=== PATIENT | male | born 1950 | race Caucasian/White ===

== ENCOUNTER 2017-10-17 06:30 | Inpatient (IN) ==
[2017-10-17] MEDS ORDERED: POTASSIUM CHLORIDE RIDER 10 MEQ in PREMIX 1 EACH IV PRN (08:51)
[2017-10-17] MEDS ORDERED: DIAZEPAM 5 MG TABLET PO ONE (08:51)
[2017-10-17] MEDS ORDERED: ASPIRIN 325 MG TABLET PO ONE (08:51)
[2017-10-17] MEDS ORDERED: diphenhydrAMINE CAP 25 MG CAPSULE PO ONE (08:51)
[2017-10-17] MEDS ORDERED: MAGNESIUM SULF RIDER 2 GM in PREMIX 1 EACH IV PRN (08:51)
[2017-10-17] MEDS ORDERED: diphenhydrAMINE CAP 25 MG CAPSULE ONE (09:42)
[2017-10-17] MEDS ORDERED: DIAZEPAM 5 MG TABLET ONE (09:42)
[2017-10-17] MEDS: SODIUM CHLORIDE 0.9% 1,000 ML IV SCH (09:51)
[2017-10-17] MEDS ORDERED: NITROGLYCERIN DRIP 50 MG/250 ML BOTTLE IV ONE (11:14)
[2017-10-17] MEDS ORDERED: HEPARIN/NACL 0.9% 2 UNITS/ML 2,000 ML IV ONE (11:14)
[2017-10-17] MEDS ORDERED: VERAPAMIL 5 MG/2 ML VIAL ONE (11:14)
[2017-10-17] MEDS ORDERED: LIDOCAINE 1% 20 ML VIAL ONE (11:14)
[2017-10-17] MEDS ORDERED: MIDAZOLAM 2 MG/2 ML VIAL ONE (11:43)
[2017-10-17] MEDS ORDERED: HYDROmorphone 2 MG/1 ML VIAL ONE (11:43)
[2017-10-17] MEDS ORDERED: ENOXAPARIN 30 MG/0.3 ML SYRINGE ONE (11:57)
[2017-10-17] MEDS ORDERED: ADENOSINE 6 MG/2 ML VIAL ONE (12:17)
[2017-10-17] MEDS ORDERED: HEPARIN DRIP 25,000 UNITS/500 ML PREMIX IV ONE (14:01)
[2017-10-17] MEDS ORDERED: HEPARIN 5,000 UNIT/1 ML VIAL ONE (14:10)
[2017-10-17] MEDS ORDERED: HEPARIN 5,000 UNIT/1 ML VIAL IV ONE (14:14)
[2017-10-17] MEDS ORDERED: HEPARIN DRIP 25,000 UNITS/500 ML PREMIX IV SCH (14:30)
[2017-10-17 14:36] LABS: Basophils # 0.1 10*3/uL (0.0-0.2); Basophils % 0.9 % (0.0-0.8); Eosinophils # 0.2 10*3/uL (0.0-0.87); Eosinophils % 3.9 % (0.00-10.9); Hematocrit 42.8 VOL% (42.0-52.0); Hemoglobin 14.8 GM/DL (14.0-18.0); Immature Granulocytes % 0.5 %; Immature Granulocytes Absolute 0.03 #; Lymphocytes % 34.1 % (21.2-54.2); Mean Corpuscular HGB Conc 34.6 GM/DL (32-36); Mean Corpuscular Hemoglobin 32 PG (27-34); Mean Corpuscular Volume 92.4 FL (87-102); Mean Platelet Volume 10.7 FL (9.6-12.0); Monocytes # 0.6 10*3/uL (0.11-0.8); Monocytes % 9.4 % (1.7-12.7); Neutrophils % 51.2 % (38.7-73.9); Platelet Count 193 T/CUMM (130-400); Red Blood Count 4.63 MC/CUMM (3.8-5.5); Red Cell Distribution Width 12.8 % (9.3-17.3); White Blood Count 5.8 T/CUMM (4-12)
[2017-10-17] MEDS ORDERED: niCARdipine INJ 25 MG in SODIUM CHLORIDE 0.9% 240 ML IV PRN (14:47)
[2017-10-17] MEDS ORDERED: LABETALOL 20 MG/4 ML SYRINGE IV PRN (14:47)
[2017-10-17] MEDS ORDERED: ALTEPLASE 9 MG in PREMIX 1 EACH IV ONE (15:04)
[2017-10-17] MEDS ORDERED: ALTEPLASE 81 MG in PREMIX 1 EACH IV ONE (15:20)
[2017-10-17] MEDS ORDERED: FUROSEMIDE 20 MG/2 ML VIAL IV ONE (17:48)
[2017-10-17] MEDS ORDERED: ONDANSETRON 4 MG/2 ML VIAL ONE (18:53)
[2017-10-17] MEDS ORDERED: ONDANSETRON 4 MG/2 ML VIAL IV PRN (18:56)
[2017-10-17] MEDS ORDERED: ACETAMINOPHEN 325 MG TABLET PO ONE (22:00)
[2017-10-18] MEDS: SODIUM CHLORIDE 0.9% 1,000 ML IV SCH (03:56)
[2017-10-18 07:51] LABS: Basophils # 0.1 10*3/uL (0.0-0.2); Basophils % 0.7 % (0.0-0.8); Eosinophils # 0.2 10*3/uL (0.0-0.87); Hematocrit 42.3 VOL% (42.0-52.0); Hemoglobin 14.6 GM/DL (14.0-18.0); Immature Granulocytes % 0.4 %; Immature Granulocytes Absolute 0.03 #; Lymphocytes # 1.4 10*3/uL (1.4-4.0); Mean Corpuscular HGB Conc 34.5 GM/DL (32-36); Mean Corpuscular Hemoglobin 32 PG (27-34); Mean Corpuscular Volume 92.6 FL (87-102); Mean Platelet Volume 10.8 FL (9.6-12.0); Monocytes # 0.7 10*3/uL (0.11-0.8); Monocytes % 9.3 % (1.7-12.7); Neutrophils # 5.3 10*3/uL (1.4-7.4); Neutrophils % 69.6 % (38.7-73.9); Platelet Count 193 T/CUMM (130-400); Red Blood Count 4.57 MC/CUMM (3.8-5.5); Red Cell Distribution Width 12.7 % (9.3-17.3); White Blood Count 7.6 T/CUMM (4-12)
[2017-10-18 08:21] LABS: Calcium 8.8 MG/DL (8.5-10.1); Magnesium 2.2 MG/DL (1.8-2.4); Osmolality,Calculated 278.5 MOS/KG (273-304)
[2017-10-18] MEDS ORDERED: ALLOPURINOL 300 MG TABLET PO SCH (09:00)
[2017-10-18] MEDS ORDERED: RAMIPRIL 5 MG CAPSULE PO SCH (09:00)
[2017-10-18] MEDS ORDERED: amLODIPine 10 MG TABLET PO SCH (09:00)
[2017-10-18] MEDS ORDERED: ROSUVASTATIN 10 MG TABLET PO SCH (09:00)
[2017-10-18] MEDS: MELOXICAM 7.5 MG TABLET PO SCH (09:03)
[2017-10-18] MEDS: ISOSORBIDE MONONITRATE 30 MG TABLET PO SCH (09:03)
[2017-10-18] MEDS: hydroCHLOROthiazide 12.5 MG CAPSULE PO SCH (09:03)
[2017-10-18] MEDS: TAMSULOSIN 0.4 MG CAPSULE PO SCH (09:03)
[2017-10-18] MEDS: ESCITALOPRAM 10 MG TABLET PO SCH (09:03)
[2017-10-18] MEDS: PANTOPRAZOLE 40 MG TABLET PO SCH (09:03)
[2017-10-18] MEDS: CHOLECALCIFEROL 1,000 UNIT TABLET PO SCH (09:04)
[2017-10-18] MEDS: VITAMIN E 400 UNIT CAPSULE PO SCH (09:04)
[2017-10-18 15:02] LABS: Basophils % 0.5 % (0.0-0.8); Eosinophils # 0.1 10*3/uL (0.0-0.87); Eosinophils % 1.7 % (0.00-10.9); Hematocrit 40.7 VOL% (42.0-52.0); Hemoglobin 14.1 GM/DL (14.0-18.0); Immature Granulocytes % 0.4 %; Immature Granulocytes Absolute 0.03 #; Lymphocytes # 1.7 10*3/uL (1.4-4.0); Lymphocytes % 22.1 % (21.2-54.2); Mean Corpuscular HGB Conc 34.6 GM/DL (32-36); Mean Corpuscular Hemoglobin 32 PG (27-34); Mean Corpuscular Volume 92.3 FL (87-102); Mean Platelet Volume 10.5 FL (9.6-12.0); Monocytes # 0.8 10*3/uL (0.11-0.8); Monocytes % 10.6 % (1.7-12.7); Neutrophils # 4.9 10*3/uL (1.4-7.4); Neutrophils % 64.7 % (38.7-73.9); Platelet Count 192 T/CUMM (130-400); Red Blood Count 4.41 MC/CUMM (3.8-5.5); Red Cell Distribution Width 12.6 % (9.3-17.3); White Blood Count 7.5 T/CUMM (4-12)
[2017-10-18 15:22] LABS: Risk Ratio 4.19; VLDL CHOLESTEROL 38.4 MG/DL
[2017-10-18] MEDS ORDERED: DOCUSATE SODIUM 100 MG CAPSULE PO PRN (16:49)
[2017-10-18] MEDS: ASPIRIN EC 81 MG TABLET PO SCH (17:14)
[2017-10-18] MEDS: CLOPIDOGREL 75 MG TABLET PO SCH (17:14)
[2017-10-18] MEDS ORDERED: CLOPIDOGREL 75 MG TABLET PO SCH (21:00)
[2017-10-18] MEDS ORDERED: ASPIRIN EC 81 MG TABLET PO SCH (21:00)
[2017-10-18] MEDS: ALLOPURINOL 300 MG TABLET PO SCH (22:44)
[2017-10-18] MEDS: ROSUVASTATIN 10 MG TABLET PO SCH (22:44)
[2017-10-18] MEDS: RAMIPRIL 5 MG CAPSULE PO SCH (22:44)
[2017-10-18] MEDS: amLODIPine 10 MG TABLET PO SCH (22:44)
[2017-10-19 05:08] LABS: Basophils # 0.1 10*3/uL (0.0-0.2); Basophils % 0.8 % (0.0-0.8); Eosinophils # 0.2 10*3/uL (0.0-0.87); Eosinophils % 3.2 % (0.00-10.9); Hematocrit 41.7 VOL% (42.0-52.0); Hemoglobin 13.9 GM/DL (14.0-18.0); Immature Granulocytes % 0.5 %; Immature Granulocytes Absolute 0.04 #; Lymphocytes # 1.8 10*3/uL (1.4-4.0); Lymphocytes % 23.5 % (21.2-54.2); Mean Corpuscular HGB Conc 33.3 GM/DL (32-36); Mean Corpuscular Hemoglobin 32 PG (27-34); Mean Corpuscular Volume 94.8 FL (87-102); Mean Platelet Volume 11.2 FL (9.6-12.0); Monocytes # 0.8 10*3/uL (0.11-0.8); Monocytes % 10.2 % (1.7-12.7); Neutrophils # 4.7 10*3/uL (1.4-7.4); Neutrophils % 61.8 % (38.7-73.9); Platelet Count 187 T/CUMM (130-400); Red Cell Distribution Width 12.5 % (9.3-17.3); White Blood Count 7.6 T/CUMM (4-12)
[2017-10-19 05:35] LABS: Calcium 8.8 MG/DL (8.5-10.1); Magnesium 2.3 MG/DL (1.8-2.4); Osmolality,Calculated 282.3 MOS/KG (273-304); Potassium 3.8 MMOL/L (3.5-5.1)
[2017-10-19] MEDS: hydroCHLOROthiazide 12.5 MG CAPSULE PO SCH (08:45)
[2017-10-19] MEDS: MELOXICAM 7.5 MG TABLET PO SCH (08:45)
[2017-10-19] MEDS: VITAMIN E 400 UNIT CAPSULE PO SCH (08:45)
[2017-10-19] MEDS: CHOLECALCIFEROL 1,000 UNIT TABLET PO SCH (08:45)
[2017-10-19] MEDS: ESCITALOPRAM 10 MG TABLET PO SCH (08:46)
[2017-10-19] MEDS: TAMSULOSIN 0.4 MG CAPSULE PO SCH (08:46)
[2017-10-19] MEDS: PANTOPRAZOLE 40 MG TABLET PO SCH (08:46)
[2017-10-19] MEDS: CLOPIDOGREL 75 MG TABLET PO SCH (08:46)
[2017-10-19] MEDS: ISOSORBIDE MONONITRATE 30 MG TABLET PO SCH (08:46)
[2017-10-19] MEDS: ASPIRIN EC 81 MG TABLET PO SCH (08:46)
[2017-10-19] MEDS ORDERED: MAGNESIUM HYDROXIDE SUSP 30 ML UDCUP PO PRN (15:47)
[2017-10-19] MEDS: SODIUM CHLORIDE 0.9% 1,000 ML IV SCH (15:52)
[2017-10-19] MEDS: ROSUVASTATIN 10 MG TABLET PO SCH (21:04)
[2017-10-19] MEDS: RAMIPRIL 5 MG CAPSULE PO SCH (21:04)
[2017-10-19] MEDS: amLODIPine 10 MG TABLET PO SCH (21:04)
[2017-10-19] MEDS: ALLOPURINOL 300 MG TABLET PO SCH (21:05)
[2017-10-19] MEDS: PSYLLIUM POWDER 3.7 GM/PACK PO SCH (21:06)
[2017-10-20 04:56] LABS: Basophils % 0.6 % (0.0-0.8); Eosinophils # 0.3 10*3/uL (0.0-0.87); Hematocrit 41.9 VOL% (42.0-52.0); Hemoglobin 14.4 GM/DL (14.0-18.0); Immature Granulocytes % 0.4 %; Immature Granulocytes Absolute 0.03 #; Lymphocytes # 1.7 10*3/uL (1.4-4.0); Lymphocytes % 25.7 % (21.2-54.2); Mean Corpuscular HGB Conc 34.4 GM/DL (32-36); Mean Corpuscular Hemoglobin 32 PG (27-34); Mean Corpuscular Volume 91.9 FL (87-102); Mean Platelet Volume 10.7 FL (9.6-12.0); Monocytes # 0.6 10*3/uL (0.11-0.8); Monocytes % 9.1 % (1.7-12.7); Neutrophils # 4.1 10*3/uL (1.4-7.4); Neutrophils % 60.2 % (38.7-73.9); Platelet Count 202 T/CUMM (130-400); Red Blood Count 4.56 MC/CUMM (3.8-5.5); Red Cell Distribution Width 12.5 % (9.3-17.3); White Blood Count 6.7 T/CUMM (4-12)
[2017-10-20 05:26] LABS: Calcium 8.7 MG/DL (8.5-10.1); Magnesium 2.1 MG/DL (1.8-2.4); Osmolality,Calculated 281.3 MOS/KG (273-304); Potassium 3.9 MMOL/L (3.5-5.1)
[2017-10-20] MEDS: CHOLECALCIFEROL 1,000 UNIT TABLET PO SCH (08:58)
[2017-10-20] MEDS: MELOXICAM 7.5 MG TABLET PO SCH (08:58)
[2017-10-20] MEDS: ESCITALOPRAM 10 MG TABLET PO SCH (08:59)
[2017-10-20] MEDS: CLOPIDOGREL 75 MG TABLET PO SCH (08:59)
[2017-10-20] MEDS: ASPIRIN EC 81 MG TABLET PO SCH (08:59)
[2017-10-20] MEDS: ISOSORBIDE MONONITRATE 30 MG TABLET PO SCH (08:59)
[2017-10-20] MEDS: TAMSULOSIN 0.4 MG CAPSULE PO SCH (08:59)
[2017-10-20] MEDS: VITAMIN E 400 UNIT CAPSULE PO SCH (08:59)
[2017-10-20] MEDS: PANTOPRAZOLE 40 MG TABLET PO SCH (08:59)
[2017-10-20] MEDS: PSYLLIUM POWDER 3.7 GM/PACK PO SCH (08:59)
[2017-10-20] MEDS: hydroCHLOROthiazide 12.5 MG CAPSULE PO SCH (08:59)
[2017-10-20] MEDS ORDERED: AZITHROMYCIN 250 MG TABLET PO ONE (12:16)
[2017-10-20 12:45] VITALS: BP 132/73
== END 2017-10-20 13:56 | disposition home or self-care (01) | DRG 62 ==
LOC: N.CL 06:30 → N.ICU 14:54 → N.TELEN 10-18 18:07
PROVIDERS: ADMIT Internal Medicine Cardiovascular Disease; ATTEND Internal Medicine Cardiovascular Disease
PROC: CLCCHCL (ICD-10-PCS; 2017-10-17 11:15)

== ENCOUNTER 2018-11-29 17:24 | Observation (INO) ==
[2018-11-29 17:54] LABS: Basophils # 0.1 10*3/uL (0.0-0.2); Basophils % 0.7 % (0.0-0.8); Eosinophils # 0.2 10*3/uL (0.0-0.87); Eosinophils % 2.3 % (0.00-10.9); Hematocrit 44.4 VOL% (42.0-52.0); Hemoglobin 14.7 GM/DL (14.0-18.0); Immature Granulocytes % 0.7 %; Immature Granulocytes Absolute 0.06 #; Lymphocytes # 2.4 10*3/uL (1.4-4.0); Lymphocytes % 28.5 % (21.2-54.2); Mean Corpuscular HGB Conc 33.1 GM/DL (32-36); Mean Corpuscular Hemoglobin 31 PG (27-34); Mean Corpuscular Volume 94.3 FL (87-102); Mean Platelet Volume 10.5 FL (9.6-12.0); Monocytes # 0.9 10*3/uL (0.11-0.8); Monocytes % 10.6 % (1.7-12.7); Neutrophils # 4.9 10*3/uL (1.4-7.4); Neutrophils % 57.2 % (38.7-73.9); Platelet Count 219 T/CUMM (130-400); Red Blood Count 4.71 MC/CUMM (3.8-5.5); Red Cell Distribution Width 12.6 % (9.3-17.3); White Blood Count 8.6 T/CUMM (4-12)
[2018-11-29 18:20] LABS: Alanine Aminotransferase 34 U/L (16-61); Albumin 4.3 G/DL (3.4-5.0); Alkaline Phosphatase 86 U/L (45-117); Aspartate Amino Transferase 19 U/L (0-37); Bilirubin,Total < 0.39 MG/DL (0.2-1.0); Blood Urea Nitrogen 16 MG/DL (7-18); Calcium 8.7 MG/DL (8.5-10.1); Glucose 109 MG/DL (74-106); Osmolality,Calculated 282.3 MOS/KG (273-304); Potassium 3.6 MMOL/L (3.5-5.1); Sodium 141 MMOL/L (136-145); Total Protein 7.6 G/DL (6.4-8.3)
[2018-11-29] MEDS ORDERED: ASPIRIN CHEW 81 MG TABLET PO STA (19:48)
[2018-11-29 20:03] LABS: PT Patient Result 10.6 SECS; Partial Thromboplastin Time 28.9 SECS (0-40)
[2018-11-29] MEDS ORDERED: MORPHINE 4 MG/1 ML VIAL IV PRN (21:12)
[2018-11-29] MEDS ORDERED: ONDANSETRON 4 MG/2 ML VIAL IV PRN (21:12)
[2018-11-29] MEDS ORDERED: MAGNESIUM SULF RIDER 4 GM in PREMIX 1 EACH IV PRN (21:15)
[2018-11-29] MEDS ORDERED: MAGNESIUM SULF RIDER 2 GM in PREMIX 1 EACH IV PRN (21:15)
[2018-11-30 00:42] LABS: Basophils % 0.6 % (0.0-0.8); Eosinophils # 0.2 10*3/uL (0.0-0.87); Eosinophils % 2.6 % (0.00-10.9); Hematocrit 41.5 VOL% (42.0-52.0); Hemoglobin 13.5 GM/DL (14.0-18.0); Immature Granulocytes % 0.4 %; Immature Granulocytes Absolute 0.03 #; Lymphocytes # 2.3 10*3/uL (1.4-4.0); Lymphocytes % 31.8 % (21.2-54.2); Mean Corpuscular HGB Conc 32.5 GM/DL (32-36); Mean Corpuscular Hemoglobin 31 PG (27-34); Mean Platelet Volume 10.7 FL (9.6-12.0); Monocytes # 0.6 10*3/uL (0.11-0.8); Monocytes % 8.1 % (1.7-12.7); Neutrophils # 4.1 10*3/uL (1.4-7.4); Neutrophils % 56.5 % (38.7-73.9); Platelet Count 201 T/CUMM (130-400); Red Blood Count 4.37 MC/CUMM (3.8-5.5); Red Cell Distribution Width 12.9 % (9.3-17.3); White Blood Count 7.2 T/CUMM (4-12)
[2018-11-30] MEDS: ENOXAPARIN 40 MG/0.4 ML SYRINGE SUBCUT SCH ×2 (00:43→20:43)
[2018-11-30] MEDS: TAMSULOSIN 0.4 MG CAPSULE PO SCH ×3 (00:44→20:46)
[2018-11-30 00:54] LABS: Calcium 8.7 MG/DL (8.5-10.1); Osmolality,Calculated 286.3 MOS/KG (273-304); Potassium 3.3 MMOL/L (3.5-5.1)
[2018-11-30] MEDS: POTASSIUM CHLORIDE 20 MEQ TABLET PO PRN ×4 (08:35→22:00)
[2018-11-30] MEDS: VITAMIN E 200 UNIT CAPSULE PO SCH (08:36)
[2018-11-30] MEDS: CHOLECALCIFEROL 400 UNIT TABLET PO SCH (08:36)
[2018-11-30] MEDS: ROSUVASTATIN 10 MG TABLET PO SCH (08:36)
[2018-11-30] MEDS: hydroCHLOROthiazide 12.5 MG CAPSULE PO SCH (08:36)
[2018-11-30] MEDS: ALLOPURINOL 300 MG TABLET PO SCH (08:36)
[2018-11-30] MEDS: amLODIPine 10 MG TABLET PO SCH (08:37)
[2018-11-30] MEDS: ESCITALOPRAM 10 MG TABLET PO SCH (08:37)
[2018-11-30] MEDS: ISOSORBIDE MONONITRATE 30 MG TABLET PO SCH (08:37)
[2018-11-30] MEDS: PANTOPRAZOLE 40 MG TABLET PO SCH (08:37)
[2018-11-30] MEDS: SPIRONOLACTONE 25 MG TABLET PO SCH (08:37)
[2018-11-30] MEDS: CLOPIDOGREL 75 MG TABLET PO SCH (08:37)
[2018-11-30] MEDS: RAMIPRIL 5 MG CAPSULE PO SCH (08:37)
[2018-11-30] MEDS ORDERED: ACETAMINOPHEN 325 MG TABLET PO PRN (09:54)
[2018-11-30] MEDS ORDERED: GABAPENTIN 100 MG CAPSULE PO SCH (18:13)
[2018-11-30] MEDS ORDERED: ACETAMINOPHEN 325 MG TABLET PO SCH (18:13)
[2018-11-30] MEDS ORDERED: ALUMINUM/MAGNES/SIMETH MAX STR 30 ML UDCUP PO PRN (20:08)
[2018-11-30] MEDS ORDERED: PANTOPRAZOLE 40 MG VIAL IV ONE (20:08)
[2018-11-30] MEDS: GABAPENTIN 100 MG CAPSULE PO SCH (20:46)
[2018-11-30] MEDS: ACETAMINOPHEN 325 MG TABLET PO SCH (20:46)
[2018-11-30] MEDS ORDERED: ASPIRIN EC 81 MG TABLET PO SCH (21:00)
[2018-12-01] MEDS: ROSUVASTATIN 10 MG TABLET PO SCH (10:08)
[2018-12-01] MEDS: CHOLECALCIFEROL 400 UNIT TABLET PO SCH (10:09)
[2018-12-01] MEDS: RAMIPRIL 5 MG CAPSULE PO SCH (10:09)
[2018-12-01] MEDS: ALLOPURINOL 300 MG TABLET PO SCH (10:09)
[2018-12-01] MEDS: ISOSORBIDE MONONITRATE 30 MG TABLET PO SCH (10:09)
[2018-12-01] MEDS: PANTOPRAZOLE 40 MG TABLET PO SCH (10:09)
[2018-12-01] MEDS: GABAPENTIN 100 MG CAPSULE PO SCH (10:10)
[2018-12-01] MEDS: ESCITALOPRAM 10 MG TABLET PO SCH (10:10)
[2018-12-01] MEDS: CLOPIDOGREL 75 MG TABLET PO SCH (10:11)
[2018-12-01] MEDS: amLODIPine 10 MG TABLET PO SCH (10:11)
[2018-12-01] MEDS: SPIRONOLACTONE 25 MG TABLET PO SCH (10:11)
[2018-12-01] MEDS: TAMSULOSIN 0.4 MG CAPSULE PO SCH (10:11)
[2018-12-01] MEDS: hydroCHLOROthiazide 12.5 MG CAPSULE PO SCH (10:11)
[2018-12-01] MEDS: ACETAMINOPHEN 325 MG TABLET PO SCH (10:16)
[2018-12-01] MEDS: VITAMIN E 200 UNIT CAPSULE PO SCH (10:17)
[2018-12-01] MEDS ORDERED: POTASSIUM CHLORIDE 20 MEQ TABLET PO SCH (11:00)
[2018-12-01] MEDS ORDERED: MAGNESIUM CHLORIDE 64 MG TABLET PO SCH (11:00)
[2018-12-01 12:18] VITALS: BP 114/50
== END 2018-12-01 12:50 | disposition home or self-care (01) ==
LOC: N.EDINP 17:24 → N.ED 17:24 → N.TELES 22:21
PROVIDERS: ADMIT Internal Medicine; ATTEND Internal Medicine

== ENCOUNTER 2021-12-30 09:01 | Observation (INO) ==
[2021-12-30 09:25] LABS: Basophils # 0.1 10*3/uL (0.0-0.2); Basophils % 0.9 % (0.0-0.8); Eosinophils # 0.2 10*3/uL (0.0-0.87); Eosinophils % 3.1 % (0.00-10.9); Hematocrit 45.3 VOL% (42.0-52.0); Immature Granulocytes % 0.5 %; Immature Granulocytes Absolute 0.03 #; Lymphocytes # 1.4 10*3/uL (1.4-4.0); Lymphocytes % 24.3 % (21.2-54.2); Mean Corpuscular HGB Conc 33.1 GM/DL (32-36); Mean Platelet Volume 10.9 FL (9.6-12.0); Monocytes % 8.3 % (1.7-12.7); Neutrophils % 62.9 % (38.7-73.9); Platelet Count 205 T/CUMM (130-400); Red Blood Count 4.72 MC/CUMM (3.8-5.5); Red Cell Distribution Width 12.7 % (9.3-17.3); White Blood Count 5.8 T/CUMM (4-12)
[2021-12-30] MEDS ORDERED: ASPIRIN 325 MG TABLET PO STA (09:30)
[2021-12-30] MEDS: NITROGLYCERIN SL 0.4 MG TABLET SL PRN ×2 (09:59→10:16)
[2021-12-30 10:23] LABS: Albumin 3.9 G/DL (3.4-5.0); Bilirubin,Total 0.5 MG/DL (0.20-1.00); Calcium 9.1 MG/DL (8.5-10.1); Osmolality,Calculated 275.8 MOS/KG (273-304); Total Protein 7.7 G/DL (6.4-8.2)
[2021-12-30] MEDS ORDERED: MORPHINE 4 MG/1 ML VIAL IV STA (10:30)
[2021-12-30] MEDS ORDERED: ONDANSETRON 4 MG/2 ML VIAL ONE (10:40)
[2021-12-30] MEDS ORDERED: ONDANSETRON 4 MG/2 ML VIAL IV STA (10:42)
[2021-12-30] MEDS ORDERED: GLUCAGON 1 MG VIAL IM PRN (10:48)
[2021-12-30] MEDS ORDERED: DEXTROSE 10% 250 ML BAG IV PRN (11:02)
[2021-12-30] MEDS ORDERED: MORPHINE 4 MG/1 ML VIAL IV PRN (11:03)
[2021-12-30] MEDS ORDERED: ZALEPLON 5 MG CAPSULE PO PRN (11:07)
[2021-12-30] MEDS: ENOXAPARIN 40 MG/0.4 ML SYRINGE SUBCUT SCH (11:11)
[2021-12-30] MEDS: TAMSULOSIN 0.4 MG CAPSULE PO SCH (13:01)
[2021-12-30] MEDS: MORPHINE 2 MG/1 ML SYRINGE IV PRN (18:44)
[2021-12-30] MEDS: ONDANSETRON 4 MG/2 ML VIAL IV PRN (18:44)
[2021-12-30] MEDS: ASPIRIN EC 81 MG TABLET PO SCH (22:24)
[2021-12-30] MEDS: PANTOPRAZOLE 40 MG TABLET PO SCH (22:24)
[2021-12-31] MEDS: TAMSULOSIN 0.4 MG CAPSULE PO SCH ×2 (02:44→12:38)
[2021-12-31 04:56] LABS: Basophils # 0.1 10*3/uL (0.0-0.2); Basophils % 0.7 % (0.0-0.8); Eosinophils # 0.2 10*3/uL (0.0-0.87); Eosinophils % 3.4 % (0.00-10.9); Hematocrit 45.1 VOL% (42.0-52.0); Hemoglobin 14.6 GM/DL (14.0-18.0); Immature Granulocytes % 0.6 %; Immature Granulocytes Absolute 0.04 #; Lymphocytes # 2.2 10*3/uL (1.4-4.0); Mean Corpuscular HGB Conc 32.4 GM/DL (32-36); Mean Corpuscular Volume 96.6 FL (87-102); Mean Platelet Volume 10.7 FL (9.6-12.0); Monocytes % 10.4 % (1.7-12.7); Neutrophils % 52.9 % (38.7-73.9); Platelet Count 196 T/CUMM (130-400); Red Blood Count 4.67 MC/CUMM (3.8-5.5); Red Cell Distribution Width 12.7 % (9.3-17.3); White Blood Count 6.7 T/CUMM (4-12)
[2021-12-31 05:21] LABS: Albumin 3.6 G/DL (3.4-5.0); Bilirubin,Total 0.8 MG/DL (0.20-1.00); Calcium 8.9 MG/DL (8.5-10.1); Osmolality,Calculated 279.4 MOS/KG (273-304); Potassium 4.4 MMOL/L (3.5-5.1); Total Protein 7.1 G/DL (6.4-8.2)
[2021-12-31] MEDS: amLODIPine 10 MG TABLET PO SCH (08:40)
[2021-12-31] MEDS: allopurinoL 300 MG TABLET PO SCH (08:40)
[2021-12-31] MEDS: ENALAPRIL 20 MG TABLET PO SCH (08:40)
[2021-12-31] MEDS: ISOSORBIDE MONONITRATE 30 MG TABLET PO SCH (08:41)
[2021-12-31] MEDS: MORPHINE 2 MG/1 ML SYRINGE IV PRN (08:51)
[2021-12-31] MEDS ORDERED: CLOPIDOGREL 75 MG TABLET PO SCH (09:00)
[2021-12-31 09:04] LABS: Risk Ratio 3.81; VLDL Cholesterol 49.2 MG/DL
[2021-12-31] MEDS: ENOXAPARIN 40 MG/0.4 ML SYRINGE SUBCUT SCH (12:42)
[2021-12-31] MEDS ORDERED: ROSUVASTATIN 10 MG TABLET PO SCH (21:00)
[2021-12-31] MEDS: PANTOPRAZOLE 40 MG TABLET PO SCH (22:16)
[2021-12-31] MEDS: ASPIRIN EC 81 MG TABLET PO SCH (22:16)
[2022-01-01] MEDS: MORPHINE 2 MG/1 ML SYRINGE IV PRN (00:40)
[2022-01-01] MEDS: ONDANSETRON 4 MG/2 ML VIAL IV PRN (00:43)
[2022-01-01] MEDS: TAMSULOSIN 0.4 MG CAPSULE PO SCH ×2 (01:30→12:17)
[2022-01-01] MEDS: amLODIPine 10 MG TABLET PO SCH (09:34)
[2022-01-01] MEDS: ENALAPRIL 20 MG TABLET PO SCH (09:34)
[2022-01-01] MEDS: allopurinoL 300 MG TABLET PO SCH (09:34)
[2022-01-01] MEDS: ISOSORBIDE MONONITRATE 30 MG TABLET PO SCH (09:34)
[2022-01-01] MEDS: ENOXAPARIN 40 MG/0.4 ML SYRINGE SUBCUT SCH (12:17)
[2022-01-01 12:26] VITALS: BP 143/50
== END 2022-01-01 16:04 | disposition home or self-care (01) ==
LOC: N.EDINP 09:01 → N.ED 09:01 → SUATTDRO 10:48 → N.EDINP 13:55 → N.TELEN 14:00
PROVIDERS: ADMIT Emergency Medicine; ATTEND Internal Medicine